=== PATIENT | male | born 1940 | race Caucasian/White ===

== ENCOUNTER 2017-05-14 06:25 | Emergency (ER) | payer MEDICARE ==
[~2017-05-14] VITALS: Ht 185.4 cm; Wt 78.2 kg
--- NOTE | 2017-05-14 06:34 | ED.REPORT ---
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 He denies a mechanism on injury but notes increased bruising at the affected area over the last week. Associated symptoms include R leg tenderness and swelling. He denies hemoptysis, hematochezia, numbness, tingling, fevers, chills, nausea, vomiting, or any other symptoms. Patient will be flying to [place] today. He does not have a hx of DVT. Nursing Notes Stated Complaint: LEG PAIN Nursing Notes Reviewed: Yes Allergies: Coded Allergies: No Known Allergies (Unverified , 05/14/17) General Time Seen by MD: 06:33 Chief Complaint Other (R leg pain ) Hx Obtained From: Patient Arrived By: Walk-in Sudden in Onset?: No Onset Occurred: 1 week ago Symptom Duration: Since onset Location: : Ankle right: Leg right Quality: Painful Severity: Current: Mild Severity: Maximum: Mild Associated with: Reports: Bruising Pertinent Negative: Pt denies other symptoms Exacerbated by: Moving affected area Context Related History: Denies Diabetes mellitus Recent Healthcare: No recent doctor visit Past Medical History Past Medical History Notes: PCP in [place] Past Medical History Afib on Coumadin Arthritis varicosities Reports: Hyperlipidemia Past Surgical History Hernia repair L knee scope Smoking History Never Smoker Social History Alcohol Use: "Social" Drug Use: Denies drug use 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 Physical Exam Nursing note and vitals reviewed. Constitutional: Well-developed, well-nourished. Not diaphoretic. Head: Normocephalic and atraumatic. Mouth/Throat: Oropharynx is clear and moist. No oropharyngeal exudate. Eyes: EOM are normal. Pupils are equal, round, and reactive to light. Neck: Supple, no tracheal deviation. Cardiovascular: Normal rate, irregularly irregular. Equal and intact distal pulses throughout. Pulmonary/Chest: Effort normal and breath sounds normal. No respiratory distress. Abdominal: Soft. No distension. There is no tenderness, rebound, or guarding. Musculoskeletal: Range of motion grossly intact, moving all extremities. No edema or tenderness appreciated. 2cm indurated lesion about the R medial distal RLE with no significant ecchymosis. Ecchymosis about the medial aspect of the R heel. No tenderness. Neurological: AOx3. Grossly nonfocal exam. Strength and sensation intact and equal to bilateral upper and lower extremities. Skin: Warm and dry, no rashes or pallor appreciated. Psychiatric: Appropriate mood and affect. Behavior appears normal. Vital Signs Vital Signs Date Time Temp Pulse Resp B/P Pulse Ox O2 Delivery O2 Flow Rate FiO2 05/14/17 06:35 36.4 74 16 163/111 100 Room Air Interpretation & Diagnostics Bedside US reveals probable abscess at the affected site. US Focused Lower Ext Venous No evidence of DVT small superficial clot Exam Performed by: Allied health pract Exam Interpreted by: Radiologist Re-Eval/Medical Decision Med Decision/Clinical Course 76-year-old male presenting to the ED for evaluation of right lower extremity pain and swelling. Differential includes varicose veins, DVT, superficial thrombophlebitis, abscess, etc. No trauma to the area. Neurovascularly intact. Ultrasound with no evidence of DVT; he may have a superficial clot from a varicose vein/superficial thrombophlebitis. At patient's request, surgery was consulted; appreciated their involvement. No need for emergent intervention at this time. Plan discharge home with careful return precautions, PCP follow-up. Patient agreeable to the plan as stated, no further questions. Time of Eval: 08:47 Re-Evaluation/Progress Note: Rechecked pt. Discussed plan for surgery to see him. Patient understands and agrees with plan. All questions addressed at this time. Time of Eval: 09:06 Re-Evaluation/Progress Note: Discussed plan for discharge. Patient understands and agrees with plan. All questions addressed at this time. Consultation : Referral / Consult Name: Elgin Joe MD Consulted With: Surgeon Call Returned at: 08:45 Magazine Supervisor: Will see patient Note: Discussed pt's case. Will see pt. Counseled Regarding: Diagnosis, Lab results, Need for follow-up, When/why to return to ED Discharge & Departure Primary Impression: Varicose vein of leg Additional Impression: Bruise Disposition: Home Discharge Condition All VS Reviewed: Yes Condition: Stable Patient Instructions: Varicose Veins (GEN) Additional Instructions: Thank you for entrusting us with your care. Your examination and ultrasound are reassuring. Specifically, we did not find evidence of a DVT or abscess. Read the information provided regarding varicose veins. Follow up with your primary doctor for re-evaluation. Call today to schedule an appointment as soon as possible. Return to the emergency department if you experience numbness, tingling, chest pain, shortness of breath, or any other new or worsening symptoms. I hope you enjoy your trip to [place]! Referrals: OTHER,PHYSICIAN (PCP) Scribe Attestation Portions of this note were transcribed by Kirstie Horta. I, Dr. Salinas personally performed the history, physical exam and medical decision-making; I reviewed and confirmed the accuracy of the information in the transcribed note. Signed: Ritu Mejias, 05/14/17 Norberto Salinas MD May 14, 2017 06:34 KIRSTIE HORTA May 14, 2017 06:59
[2017-05-14 06:35] VITALS: BP 163/111; PULSE 74; RESP 16; O2SAT 100
--- NOTE | 2017-05-14 16:59 | DRSVH ---
PROCEDURE: US VEINOUS LEG DUPLEX UNILATERAL, RIGHT INDICATIONS: eval DVT, phlebitis, etc TECHNIQUE: Real-time imaging, as well as color and pulse Doppler interrogation, were performed of the lower extr emity deep veins from the inguinal ligament to the popliteal fossa. COMPARISON: None. FINDINGS: The deep veins are normally compressible, and free of intraluminal thrombus. Color and pu lse Doppler demonstrate normal phasic intraluminal flow. There is normal augmentation response to di stal compression maneuver. Superficial thrombophlebitis visualized within the lower calf medially co arse body to the palpable abnormality. IMPRESSION: Superficial thrombophlebitis within the lower leg. No deep venous thrombosis. Dictated by: Sorin ELIZABETH Interpreted: Ana Laura Goins MD on 05/14/2017 at 10:20 Approved by: Ana Laura Goins M.D. on 05/14/2017 at 16:57
== END 2017-05-14 09:23 | disposition home or self-care (01) ==
LOC: SED 06:25
DX: I83.91 Asymptomatic varicose veins of right lower extremity (principal); S80.11XA Contusion of right lower leg, initial encounter; X58.XXXA Exposure to other specified factors, initial encounter; Y93.9 Activity, unspecified; Y92.9 Unspecified place or not applicable; Y99.9 Unspecified external cause status; I48.91 Unspecified atrial fibrillation; E78.5 Hyperlipidemia, unspecified; Z79.01 Long term (current) use of anticoagulants